=== PATIENT | female | born 1965 | race Caucasian/White ===

== ENCOUNTER 2023-11-02 07:09 | Outpatient (CLI) | payer OTHER | END 2023-11-02 08:28 | disposition home or self-care (01) | LOC: RAD 07:09 | PROVIDERS: ATTEND Internal Medicine | DX: S89.92XS Unspecified injury of left lower leg, sequela (principal); S83.242S Other tear of medial meniscus, current injury, left knee, sequela ==

== ENCOUNTER 2024-12-22 10:49 | Emergency (ER) | payer OTHER ==
[~2024-12-22] VITALS: Ht 162.6 cm; Wt 139.3 kg
[2024-12-22] MEDS ORDERED: TOPROL XL50 M1 PO (11:44)
[2024-12-22] MEDS ORDERED: CATAPRES0.3 MG PO (11:44)
[2024-12-22] MEDS ORDERED: VALSARTAN-HCTZ1 EAC4 PO (11:44)
[2024-12-22] MEDS ORDERED: LIPITOR40 M1 PO (11:47)
[2024-12-22] MEDS ORDERED: METFORMIN HCL1000 M2 PO (11:47)
[2024-12-22] MEDS ORDERED: KETOROLAC TROMETHAMINE 60 MG VIAL IM ONE (12:00)
[2024-12-22 12:52] LABS: HEMOGLOBIN 12.6 g/dL (12.0-15.00); MEAN CELL VOLUME 80.8 fL (80.00-100.00); MEAN CORPUSCULAR HGB CONC 32.2 g/dl (32.0-36.0); PLATELET COUNT 168 K/uL (150-450); RED BLOOD COUNT 4.83 M/uL (4.00-6.00); RED CELL DISTRIBUTION WIDTH 15.4 % (11.5-14.5)
[2024-12-22 13:13] LABS: CALCIUM 9.8 mg/dL (8.5-10.1); CREATININE SERUM 0.81 mg/dL (0.55-1.02); GFR 72.62; POTASSIUM 3.91 mEq/L (3.5-5.1)
[2024-12-22 13:31] LABS: PH,URINE 5.5 (5.0-8.0); URINE APPEARANCE Clear; URINE BILIRRUBIN Negative (NEGATIVE); URINE BLOOD Large; URINE COLOR Yellow; URINE KETONE Trace (NEGATIVE); URINE LEUKOCYTE Negative; URINE NITRATE Negative; URINE UROBILINOGEN 0.2 E.U./dl
[2024-12-22 13:39] LABS: URINE BACTERIA 1725.7 uL (0.0-1933); URINE EPITHELIAL CELLS 49.7 uL (0.0-38.8); URINE RBC 401.1 uL (0.0-20.8); URINE WBC 95.7 uL (0.0-23.2)
[2024-12-22 13:52] LABS: URINE CAST 0.88 uL (0.0-1.40); URINE GLUCOSE >=1000 MG/DL (NEGATIVE); URINE PROTEIN 100 (NEGATIVE)
[2024-12-22] MEDS ORDERED: TAMSULOSIN HCL 0.4 MG CAP PO ONE (16:00)
== END 2024-12-22 16:13 | disposition home or self-care (01) ==
LOC: ER 10:52
PROVIDERS: Emergency Medicine
DX: R10.9 Unspecified abdominal pain (principal); I10 Essential (primary) hypertension; E11.9 Type 2 diabetes mellitus without complications; Z79.84 Long term (current) use of oral hypoglycemic drugs

== ENCOUNTER 2025-01-17 07:21 | Outpatient (CLI) | payer OTHER ==
[~2025-01-17 07:21] MED LIST: CATAPRES0.3 MG PO; LIPITOR40 M1 PO; METFORMIN HCL1000 M2 PO; TOPROL XL50 M1 PO; VALSARTAN-HCTZ1 EAC4 PO
== END 2025-01-17 07:30 | disposition home or self-care (01) ==
LOC: SONOGRAMA 07:21
PROVIDERS: ATTEND Internal Medicine Gastroenterology
DX: K76.0 Fatty (change of) liver, not elsewhere classified (principal); E06.9 Thyroiditis, unspecified